=== PATIENT | female | born 1985 | race Caucasian/White ===

== ENCOUNTER 2023-01-10 12:31 | Emergency (ER) | payer MEDICAID ==
[~2023-01-10] VITALS: Ht 157.5 cm; Wt 67.0 kg
[2023-01-10 13:38] VITALS: BP 138/94
[2023-01-10 20:30] LABS: BASOPHILS % 0.7 % (0.0-2.0); EOSINOPHILS % 0.2 % (0.0-5.0); HEMATOCRIT. 33.6 % (36.0-48.0); HEMOGLOBIN. 10.8 g/dL (12.0-16.0); LYMPHOCYTES % 24.6 % (20.0-50.0); MEAN CORPUSCULAR HEMOGLOBIN 23.5 pg (28.0-32.0); MEAN CORPUSCULAR VOLUME 72.8 fL (81.0-99.0); MEAN PLATELET VOLUME 7.9 fl (7.4-10.4); MONOCYTES % 6.8 % (2.0-8.0); NEUTROPHILS % 67.7 % (40.0-76.0); PLATELET 321 x1000/uL (130-400); RED BLOOD CELL COUNT 4.61 mill/uL (4.2-5.4); RED CELL DISTRIBUTION WIDTH 21.5 % (11.6-14.6)
[2023-01-10 20:40] LABS: CHLORIDE 109 mEq/L (98-107)
[2023-01-10] MEDS ORDERED: ONDA4TAB50 MT (21:06)
[2023-01-10] MEDS ORDERED: BENZ200C52 MT (21:06)
[2023-01-10] MEDS ORDERED: [UNRECOGNIZED DRUG - CODE] PO (21:06)
== END 2023-01-10 21:17 | disposition home or self-care (01) ==
LOC: ER 13:14
DX: B34.9 Viral infection, unspecified (principal); R05.1 Acute cough; R03.0 Elevated blood-pressure reading, without diagnosis of hypertension; Z86.16 Personal history of COVID-19
CPT/HCPCS: 36415; 71045; 80053; 85025; 93005; 99285